=== PATIENT | female | born 1955 | race Caucasian/White ===

== ENCOUNTER 2018-11-11 19:14 | Inpatient (IN) | payer OTHER ==
[~2018-11-11] VITALS: Ht 172.7 cm; Wt 75.7 kg
[2018-11-11 10:30] VITALS: BP 176/88
[2018-11-11] MEDS ORDERED: *INS HUMA SQ (22:05)
[2018-11-11] MEDS ORDERED: INSU100I26 SQ (22:05)
[2018-11-11] MEDS ORDERED: DIAZ2TAB PO (22:10)
--- NOTE | 2018-11-11 22:30 | NUR ---
MS TRAIN DISPATCHER NOTES Admitted this 63 year old female from A/O x4, awake, on gurney accompanied by 2 manager lighting. Received from [facility], admitted to MS 311-1 due to septic arthritis under the service of SHERRY Radford. Assisted to bed comfortably, patient noted ambulatory independently with steady gait. Skin assessment done, photos taken and documented. Belongings inventory completed by ANJEL Akhtar.With patent peripheral LAC G#20, SL. Kept on bed comfortably, clean and dry. Kept bed low and locked, siderails x2 up, call light within easy reach. BS - 133.
[2018-11-11] MEDS ORDERED: HYDROCODONE/APAP 5/325MG 1 EACH TABLET PO PRN (23:00)
[2018-11-11] MEDS ORDERED: INSULIN REGULAR, HUMAN 100 UNIT/ML 3 ML VIAL SQ PRN (23:00)
[2018-11-11] MEDS ORDERED: MAGNESIUM HYDROXIDE 30 ML UDC PO PRN (23:00)
[2018-11-11] MEDS ORDERED: Z GUARD REMEDY 2 OZ OINT TP PRN (23:00)
[2018-11-11] MEDS ORDERED: *INSULIN REGULAR(HUMULIN R)HUM 100 UNIT/ML VIAL SQ PRN (23:00)
[2018-11-11] MEDS ORDERED: ACETAMINOPHEN 325 MG TABLET PO PRN (23:00)
[2018-11-11] MEDS ORDERED: MORPHINE SULFATE INJ 2 MG/ML DISP.SYRIN IV PRN (23:00)
[2018-11-11] MEDS ORDERED: VANCOMYCIN 1 GM in IV D5W 250ml IV ONE (23:00)
[2018-11-11] MEDS ORDERED: ONDANSETRON HCL/PF 4 MG/2 ML VIAL IVP PRN (23:00)
[2018-11-11] MEDS ORDERED: ZOLPIDEM TARTRATE 5 MG TABLET PO PRN (23:00)
[2018-11-11] MEDS ORDERED: DIAZEPAM 2 MG TABLET PO PRN (23:00)
[2018-11-11] MEDS ORDERED: INSULIN GLARGINE, 100 UNIT/ML CARTRIDGE SQ SCH (23:00)
[2018-11-11] MEDS ORDERED: DEXTROSE 50%-WATER 50 ML DISP.SYRIN IV PRN (23:00)
[2018-11-11] MEDS: BLOOD SUGAR DIAGNOSTIC 1 EACH STRIP IN SCH (23:09)
--- NOTE | 2018-11-11 23:22 | NUR ---
MS RN NOTES - HELD LISPRO Upon arrival, BS - 133. Patient claimed she self administer 12u Lispro. At this time, the patient claimed feeling something is wrong. Rechecked BS - 76. Held HS lispro, gave juice. Will recheck BS in 20 mins. Will continue to monitor accordingly.
[2018-11-11] MEDS: IV NS 0.9% 1,000 ML IV PRN (23:35)
--- NOTE | 2018-11-12 | NUR ---
MS RN NOTES Rechecked BS - 119. Patient claimed feeling better at this time. Will continue to monitor accordingly.
[2018-11-12] MEDS ORDERED: VANCOMYCIN 1 GM VIAL ONE (03:15)
[2018-11-12] MEDS ORDERED: VANCOMYCIN 1 GM in IV NS 0.9% 250 ML IV ONE (05:00)
--- NOTE | 2018-11-12 06:48 | NUR ---
MS RN CLOSING NOTES Patient claimed she slept intermittently. Peripheral IV line LAC G#20 with NS @ 75ml/hr infusing well as ordered. Patient denies discomfort at this time. Due meds given as ordered. Kept bed low and locked, siderails x2 up, call light within easy reach. Endorsed to the next shift.
[2018-11-12 07:23] LABS: BASOPHILS % (AUTO) 0.6 % (0.0-2.0); EOSINOPHILS % (AUTO) 2.4 % (0.0-6.0); HEMATOCRIT 37 % (33-45); HEMOGLOBIN 12.2 g/dL (11.5-14.8); LYMPHOCYTES # (AUTO) 2.2 /CMM (0.8-4.8); LYMPHOCYTES % (AUTO) 35.2 % (20.0-44.0); MEAN CORPUSCULAR HGB CONC 33 g/dl (31.0-36.0); MEAN CORPUSCULAR VOLUME 88 fL (82-100); MONOCYTES # (AUTO) 0.4 /CMM (0.1-1.30); MONOCYTES % (AUTO) 7.2 % (2.0-12.0); NEUTROPHILS # (AUTO) 3.4 /CMM (1.8-8.9); NEUTROPHILS % (AUTO) 54.6 % (43.0-81.0); PLATELET COUNT (AUTO) 332 /CMM (150-450); RED BLOOD CELL COUNT(AUTO) 4.16 MIL/uL (4.0-5.2); WHITE BLOOD COUNT (AUTO) 6.2 K/uL (4.3-11.0)
--- NOTE | 2018-11-12 07:24 | NUR ---
MS RN NOTES MEDICAL OFFICE SECRETARY RN summoned to patient's room. IV site noted infiltrated. D/C LAC line, applied dressing minimal bleeding noted controlled with pressure. Reinserted peripheral IV line G#24 L Forearm, 1 attempt, good blood return noted. Resumed IVF as ordered. Ice pack applied to to LAC.
[2018-11-12] MEDS: BLOOD SUGAR DIAGNOSTIC 1 EACH STRIP IN SCH ×4 (07:29→21:04)
[2018-11-12 07:37] LABS: CALCIUM, SERUM 8.5 mg/dL (8.5-10.1); CREATININE 0.6 mg/dL (0.6-1.3); MAGNESIUM 1.8 mg/dL (1.8-2.4); PHOSPHORUS 3.7 mg/dL (2.5-4.9); POTASSIUM 3.7 mmol/L (3.5-5.1)
[2018-11-12 08:00] VITALS: BP 160/73
--- NOTE | 2018-11-12 08:00 | NUR ---
MS MARY AM NOTES Received pt A/O x4, awake, on gurney accompanied by 2 [address] maintainer[address] Patient ambulatory independently with steady gait. With patent peripheral LAC G#20, SL.With ongoing IVF of NS at 75 ml/hr infusing well.Blood sugar 175 and pt wants to use her own home med Humalog and Basaglar Pen insulins because here needles are less painful compared to our own insulin syringes.Informed Timmy,CLOTHES WRINGER and stated its OK. sent pt's own home med insulin pens to the pharmacy.Coordinated with pharmacy. Kept on bed comfortably, clean and dry. Kept bed low and locked, siderails x2 up, call light within easy reach.
[2018-11-12] MEDS ORDERED: FEE PK DOSING 1 MIN EA MC ONE (08:29)
[2018-11-12] MEDS ORDERED: INSULIN GLARGINE, 100 UNIT/ML CARTRIDGE SQ SCH (09:00)
[2018-11-12] MEDS ORDERED: HOME MED MISCELLANEOUS XX SCH (10:00)
[2018-11-12] MEDS ORDERED: HOME MED MISCELLANEOUS SQ SCH (10:00)
[2018-11-12] MEDS ORDERED: DEXTROSE 50%-WATER 50 ML DISP.SYRIN IV PRN (11:00)
[2018-11-12] MEDS ORDERED: *INSULIN ASPART NOVOLOG 100 UNIT/ML CARTRIDGE SQ PRN (11:00)
--- NOTE | 2018-11-12 11:21 | NUR ---
WOUND CARE CONSULT: PT WAS SEEN BY DR KNIGHT. DEFER TO DPM FOR WOUND TREATMENT PLAN. PT IS CONTINENT AND INDEPENDENT WITH BED MOBILITY. WILL SEE PRN.
--- NOTE | 2018-11-12 11:40 | NUR ---
DR KNIGHT SAW THE PT AND DID THE RT AND LEFT FOOT WOUND DEBRIDEMENT PROCEDURE WITH CONSENT SIGNED.DONE AT BEDSIDE.PT TOLERATED WELL.
[2018-11-12] MEDS: BASAGLAR INSULIN SQ SCH ×2 (11:47→21:04)
[2018-11-12] MEDS: INSULIN ASPART/LISPRO 100 UNIT/ML CARTRIDGE SQ PRN ×2 (11:53→17:52)
--- NOTE | 2018-11-12 13:00 | NUR ---
OFFERED THE BED CRADLE BUT PT REFUSED HAVING IT ON HER BED SAYING SHE IS FINE.
[2018-11-12 13:47] LABS: APPEARANCE,URINE CLEAR (CLEAR); BILIRUBIN,URINE NEGATIVE (NEGATIVE); BLOOD, URINE NEGATIVE Ery/uL (NEGATIVE); COLOR,URINE YELLOW (YELLOW); KETONES,URINE NEGATIVE (NEGATIVE); LEUKOCYTE ESTERASE ,URINE NEGATIVE (NEGATIVE); NITRITE, URINE NEGATIVE (NEGATIVE); PROTEIN,URINE NEGATIVE (NEGATIVE); UGLUCOSE 3+ mg/dL (NEGATIVE); UROBILINOGEN,URINE 0.2 EU/dL (0.2)
[2018-11-12 13:54] LABS: CREATININE, URINE 20.4 MG/DL (30.0-125.0); URINE TOTAL PROTEIN 3.4 mg/dL (0-11.9)
--- NOTE | 2018-11-12 14:28 | NUR ---
Social service consult requested by SHERRY Radford for providing pt. with Advance Directives Form. SW met with pt. bedside. Pt. is alert and oriented x 4. Pt. was sitting upright on her bed and watching TV. SW explained the Advance Directive process and left form with the pt. Pt. stated she will have it filled out later.
[2018-11-12 16:00] VITALS: BP 130/69
[2018-11-12 16:00] LABS: BACTERIA,URINE Rare /HPF (None Seen); RBC,URINE 0-2 /HPF (0-2); WBC,URINE 0-2 /HPF (0-3)
[2018-11-12 16:01] LABS: SQUAMOUS EPITHELIAL CELL,UR Few /HPF (None Seen)
[2018-11-12] MEDS: VANCOMYCIN 1 GM in IV D5W 250 ML IV SCH (16:18)
[2018-11-12 16:21] LABS: EOSINOPHIL,URINE None Seen
--- NOTE | 2018-11-12 17:09 | NUR ---
PT IS RELAXING WATCHING TELEVISION AND DENIED PAIN WITH ONGOING VANCOMYCIN INFUSING WELL AND ABLE TO TAKE A GOOD NAP STATED BY THE PATIENT AND CALL LIGHT WITHIN REACH.
--- NOTE | 2018-11-12 19:15 | NUR ---
MS RN OPENING NOTES Received patient in bed, family at bedside. Alert, oriented x 4. Breathing even and unlabored. Not in any distress. Peripheral IV infusing at 75mL/hr. Call light within easy reach. Bed in low, locked position. Will continue to monitor accordingly
[2018-11-12 20:00] VITALS: BP 151/73
[2018-11-12] MEDS: CEFTRIAXONE 1 G in IV D5W 50 ML IV SCH (20:00)
--- NOTE | 2018-11-12 21:10 | NUR ---
RN NOTES BSL checked- 256mg/dL. Basaglar insulin administered by patient. Novolog 6units administered by patient as per sliding scale. Juice provided. Will continue to monitor accordingly
[2018-11-12] MEDS: TEMAZEPAM 15 MG CAPSULE PO PRN (22:18)
--- NOTE | 2018-11-12 22:20 | NUR ---
RN NOTES Patient requesting for sleeping tablet. Refused ambien but okay with restoril- 15mg given as ordered. Patient also requested to be unhooked from IV as she has a hard time sleeping with it on. Patient is drinking. Explained to her that I will hook her back when her antibiotics is due. Patient verbalized understanding. Will continue to monitor accordingly
--- NOTE | 2018-11-13 00:20 | NUR ---
RN NOTES BSL rechecked- 73mg/dL. Patient given orange juice. Will recheck in 20mins.
--- NOTE | 2018-11-13 00:42 | NUR ---
MS RN OPENING NOTES BSL recheked- 67mg/dL. Patient provided juice and kimi crackers. Took the orange juice but refused the kimi crackers. Will recheck again later
--- NOTE | 2018-11-13 01:25 | NUR ---
RN NOTES BSL rechecked- 105mg/dL. Will continue to monitor accordingly
[2018-11-13 04:00] VITALS: BP 148/74
[2018-11-13 04:28] LABS: BASOPHILS # (AUTO) 0.1 /CMM (0.0-0.2); BASOPHILS % (AUTO) 0.9 % (0.0-2.0); HEMATOCRIT 38 % (33-45); HEMOGLOBIN 12.6 g/dL (11.5-14.8); LYMPHOCYTES # (AUTO) 2.6 /CMM (0.8-4.8); LYMPHOCYTES % (AUTO) 44.5 % (20.0-44.0); MEAN CORPUSCULAR HGB CONC 34 g/dl (31.0-36.0); MEAN CORPUSCULAR VOLUME 87 fL (82-100); MONOCYTES # (AUTO) 0.4 /CMM (0.1-1.30); MONOCYTES % (AUTO) 6.8 % (2.0-12.0); NEUTROPHILS # (AUTO) 2.6 /CMM (1.8-8.9); NEUTROPHILS % (AUTO) 44.8 % (43.0-81.0); PLATELET COUNT (AUTO) 342 /CMM (150-450); WHITE BLOOD COUNT (AUTO) 5.8 K/uL (4.3-11.0)
[2018-11-13 04:52] LABS: ALBUMIN 2.5 g/dL (3.4-5.0); BILIRUBIN,TOTAL 0.3 mg/dL (0.2-1.0); CALCIUM, SERUM 8.7 mg/dL (8.5-10.1); CREATININE 0.6 mg/dL (0.6-1.3); PHOSPHORUS 4.1 mg/dL (2.5-4.9); TOTAL PROTEIN, SERUM 6.4 g/dL (6.4-8.2)
[2018-11-13] MEDS: IV NS 0.9% 1,000 ML IV PRN (05:10)
[2018-11-13] MEDS: VANCOMYCIN 1 GM in IV D5W 250 ML IV SCH ×2 (05:34→16:18)
--- NOTE | 2018-11-13 06:40 | NUR ---
RN NOTES BSL checked- 113mg/dL. No insulin coverage given per sliding scale
--- NOTE | 2018-11-13 06:58 | NUR ---
MS RN CLOSING NOTES Patient in bed, alert, oriented x 4. Breathing even and unlabored. Not in any distress. No complaints at this time. Peripheral IV infusing at 75mL/hr. Call light within reach. Bed in low, locked position. Will endorse CONCHA to oncoming RN
[2018-11-13] MEDS: BLOOD SUGAR DIAGNOSTIC 1 EACH STRIP IN SCH ×4 (07:29→22:24)
[2018-11-13] MEDS: INSULIN ASPART/LISPRO 100 UNIT/ML CARTRIDGE SQ PRN ×2 (07:30→22:37)
[2018-11-13 08:00] VITALS: BP 155/71
--- NOTE | 2018-11-13 08:00 | NUR ---
MS RN OPENING NOTES Received patient in bed, Alert, oriented x 4. Breathing even and unlabored. Not in any distress or pain. Peripheral IV infusing at 75mL/hr. Call light within easy reach. Bed in low, locked position. Will continue to monitor accordingly
[2018-11-13] MEDS: HYDROGEL DRESSING 90 GM TUBE TP SCH (08:48)
[2018-11-13] MEDS: BASAGLAR INSULIN SQ SCH (08:48)
[2018-11-13] MEDS ORDERED: INSULIN REGULAR, HUMAN 100 UNIT/ML 3 ML VIAL SQ PRN (09:00)
[2018-11-13] MEDS ORDERED: DEXTROSE 50%-WATER 50 ML DISP.SYRIN IV PRN ×2 (09:00→09:30)
[2018-11-13] MEDS: INSULIN LISPRO/ASPART 100 UNIT/ML CARTRIDGE SQ SCH ×2 (11:05→17:49)
--- NOTE | 2018-11-13 11:05 | NUR ---
THERE WAS A DELAY IN ROUTINE HUMALOG INSULIN FOR 0900 DUE TO CLARIFICATION OF ORDERS WITH SHERRY HENDRICKSON.CHECKED PT'S BLOOD SUGAR BS 313 PRIOR TO ADMINISTERING HUMALOG INSULIN OF 9 UNITS.WILL RECHECK AND MONITOR.
[2018-11-13] MEDS ORDERED: BLOOD SUGAR DIAGNOSTIC 1 EACH STRIP IN SCH (12:00)
[2018-11-13 16:00] VITALS: BP 158/78
[2018-11-13] MEDS: LACTOBACILLUS RHAMNOSUS GG 1 EACH CAP.SPRINK PO SCH (16:20)
--- NOTE | 2018-11-13 19:30 | NUR ---
RN NOTES RECEIVED PT. AWAKE ON BED, FAMILY AT BEDSIDE, PT. IS NOT HAPPY BECAUSE THERE'S A NEW ADMISSION ON THE OTHER BED, AND PT'S DAUGHTER TALKED TO ME IF WE CAN TRANSFER THE PT. TO ANOTHER ROOM. I EXPLAINED OT THE PT'S DAUGHTER THAT EVEN WE TRANSFER HER TO ANOTHER ROOM THERE'S NO GUARANTEE THAT SHE CANNOT HAVE A ROOM MATE.. PT. WAS NOT HAPPY ABOUT IT
[2018-11-13 20:00] VITALS: BP 161/81
[2018-11-13 20:24] VITALS: BP 161/81
[2018-11-13] MEDS: CEFTRIAXONE 1 G in IV D5W 50 ML IV SCH (20:34)
--- NOTE | 2018-11-13 20:45 | NUR ---
RN NOTES TALKED TO THE PT REGARDING HER REQUEST TO BE MOVED TO ANOTHER ROOM BUT EXPLAINED TO HER WELL TO HER FAMILY THAT THERE'S NO GUARANTEE THAT SHE CANNOT HAVE ANOTHER ROOM MATE. EVEN ASKED THE PT. THAT SHE STARTED TO GET ANXIOUS WHEN HER ROOM MATE CAME BEGINNING OF THE SHIFT
--- NOTE | 2018-11-13 20:50 | NUR ---
RN NOTES PT. IS COMPLAINING ABOUT HER INSULIN MEDICATION AND I KEEP ON EXPLAINING TO HER THAT WE NEED TO CHECK AGAI HER BLOOD SUGAR BEFORE I CAN GIVE HER LANTUS .. I EXPLAINING IT INFRONT OF HER DAUGHTER AND HER SON BUT PT. STILL INSISTING THAT SHE'S ONLY CHECKING IT 2X/DAY.. I EXPLAINED IT TO HER THAT SINCE HER BLOOD SUGAR WAS FLUCTUATING, WE NEED TO CHECK IT AC/HS..HER DAUGHTER IS ALREADY HELPING ME EXPLAINING EVERYTHING TO THE PT. BUT PT. WAS BLAMING ME. EVEN HER IV LINE WAS ALREADY A INFILTRATED A ND I TOLD HER THAT WERE GOING TO PUT A NEW ONE.. SHE EVEN TOLD ME THAT EARLIER IT WAS NOT LIKE THAT. I EXPLAINED TO THE PT. THAT I HAVEN'T TOUCH IT YET AND I'M GOING TO CALL ICU NURSE TO PUT A NEW LINE
--- NOTE | 2018-11-13 21:00 | NUR ---
RN NOTES CHARGE NURSE ALREADY LOOKING FOR ANOTHER ROOM BUT PT. REFUSED TO BE MOVED THIS TIME
--- NOTE | 2018-11-13 21:00 | NUR ---
RN NOTES I TALKED TO CHARGE NURSE TO CHANGE THE ASSIGNMENT. AFTER GIVING REPORT TO ANOTHER NURSE PT. APOLOGIZED TO ME AND I EXPLAINED TOT HE PT. THAT I UNDERSTAND HER
--- NOTE | 2018-11-13 21:00 | NUR ---
RN MS RECEIVING NOTES, CONTINUITY OF CARE RECEIVED PATIENT FROM [facility] IN STABLE CONDITION, AWAKE ALERT AND ORIENTED X 4, RESPIRATIONS EVEN AND UNLABORED WITH EQUAL RISE AND FALL OF CHEST, PATIENT APPEARS ANXIOUS AT THIS TIME, PLAN OF CARE DISCUSSED REDIRECTABLE. IV SITE TO RIGHT FA REMOVED, IV SITE TO LEFT WRIST #20 INTACT AND PATENT, NO REDNESS, NO INFILTRATION PRESENT, RIGHT ARM NOTED SLIGHT REDNESS, INFILTRATED, DISCUSSED PLAN OF CARE, PATIENT REFUSING IVF, STATES " IM UP WALKING TO BATHROOM BACK AND FOURTH AND DRINKING WATER".WOUND DRESSING TO BLE INTACT,CLEAN AND DRY,DENIES ANY PAIN AT THIS TIME, WILL REASSESS B/P WHEN PATIENT IS CALM AND DOESNT APPEAR ANXIOUS. ALL NEEDS ATTENDED AT THIS TIME , WILL CONTINUE TO MONITOR AND ADDRESS NEEDS.
--- NOTE | 2018-11-13 21:25 | NUR ---
RN NOTES CHARGE NURSE TALKED TO THE PT. BUT PT. REFUSED TO TALK
--- NOTE | 2018-11-13 21:30 | NUR ---
RN NOTES AFTER I INTRODUCED THE OTHER NURSE PT. TALKED TO ME AND WAS CRYING AND APOLOGIZED AGAIN.. PT STATED THAT "SHE DOESN'T WANT TO BE MEAN TO ME". PT EVEN ASKED ME TO HELP TO FIX HER DRESSING ON HER LEFT FOOT BEFORE SHE GO TO THE TOILET. FIXED THE DRESSING ON PT'S LEFT FOOT. AND HELPED HER TO GO THE TOILET
--- NOTE | 2018-11-13 22:00 | NUR ---
RN MS NOTES PATIENT REFUSED TO HAVE INSULIN PER SLIDING SCALE DESPITE EXPLANATION , JUST WANTS LANTUS. LANTUS GIVEN ORDERED.
[2018-11-13] MEDS: TEMAZEPAM 15 MG CAPSULE PO PRN (22:24)
--- NOTE | 2018-11-13 22:24 | NUR ---
RN MS NOTES PATIENT REQUESTED FOR SLEEP MEDICATION PRN RESTORIL OFFERED PT AGREED TO TAKE . PRN GIVEN ORDERED WILL CONTINUE TO MONITOR, PATIENT APPEARS TO BE ANXIOUS BUT REDIRECTABLE.
[2018-11-13] MEDS: INSULIN GLARGINE, 100 UNIT/ML CARTRIDGE SQ SCH (22:28)
--- NOTE | 2018-11-14 00:28 | NUR ---
RN MS NOTES RECHECKED B/P AFTER PATIENT WAS CALM AND FREE AND FEELING ANXIOUS, PATIENT HAS A HISTORY OF HTN AND STATES "ITS BEEN IN THE 200'S BEFORE AND HAS RECEIVED [place]AN BUT NOT TAKING ANYTHING NOW" CURRENTLY DOES NOT TAKE ANY HOME MEDICATIONS FOR HTN. NOTED WITH B/P OF 167/75,78 AND TREND OF SBP 150-170 CALLED AND SPOKE TO TAM YUSUF MADE AWARE WITH NEW ORDER FOR HYDRALAZINE 10MG IV X 1, F/UP IN AM. WILL CONTINUE TO MONITOR.
[2018-11-14] MEDS ORDERED: hydrALAZINE HCL IV 20 MG VIAL IV ONE (00:30)
--- NOTE | 2018-11-14 00:52 | NUR ---
RN MS NOTES PATIENT REFUSED HYDRALAZINE AT THIS TIME, EXPLAINED B/P IS ELEVATED AND RISK AND BENEFITS, PATIENT STATES "NO,SHE WILL HAVE TO LOOK IT UP FIRST". NOT GIVEN WILL CONTINUE TO MONITOR, ASYMPTOMATIC
--- NOTE | 2018-11-14 03:38 | NUR ---
RN MS NOTES PATIENT REQUESTING FOR ACCUCHECK ACCUCHECK 265
[2018-11-14] MEDS ORDERED: VANCOMYCIN 1.25 GM in IV D5W 500 ML IV SCH (05:00)
[2018-11-14] MEDS: VANCOMYCIN 1 GM in IV D5W 250 ML IV SCH ×2 (05:28→18:07)
--- NOTE | 2018-11-14 06:28 | NUR ---
RN MS CLOSING PATIENT IN BED AWAKE ALERT AND ORIENTED X 4, RESPIRATIONS EVEN AND UNLABORED WITH EQUAL RISE AND FALL OF CHEST, IV SITE TO RIGHT FA REMOVED, IV SITE TO LEFT WRIST #20 INTACT AND PATENT, NO REDNESS, NO INFILTRATION PRESENT, PATIENT REFUSING IVF AND REFUSED PRN HYDRALAZINE REFUSED SLIDING SCALE INSULIN, WOUND DRESSING TO BLE INTACT,CLEAN AND DRY,DENIES ANY PAIN AT THIS TIME, ALL NEEDS ATTENDED AT THIS TIME , WILL CONTINUE TO MONITOR AND ADDRESS NEEDS AND ENDORSE TO NEXT SHIFT .
[2018-11-14] MEDS: INSULIN ASPART/LISPRO 100 UNIT/ML CARTRIDGE SQ PRN ×4 (06:53→21:40)
[2018-11-14] MEDS: BLOOD SUGAR DIAGNOSTIC 1 EACH STRIP IN SCH ×4 (06:56→21:34)
--- NOTE | 2018-11-14 07:02 | NUR ---
MS RN NOTES PATIENT IN BED ALERT ORIENTED X 4. NO ACUTE DISTRESS NOTED. BREATHING UNLABORED. NO ACUTE DISTRESS NOTED. IV ACCESS PATENT AND INTACT, NO REDNESS OR SWELLING NOTED. SAFETY MEASURES IN PLACE. CALL LIGHT WITHIN REACH. WILL CONTINUE TO MONITOR ACCORDINGLY.
[2018-11-14 07:40] LABS: CALCIUM, SERUM 9.1 mg/dL (8.5-10.1); CREATININE 0.8 mg/dL (0.6-1.3); POTASSIUM 3.8 mmol/L (3.5-5.1)
[2018-11-14 08:00] VITALS: BP 171/82
[2018-11-14] MEDS: INSULIN LISPRO/ASPART 100 UNIT/ML CARTRIDGE SQ SCH ×2 (09:27→17:58)
[2018-11-14] MEDS: LOSARTAN POTASSIUM 25 MG TABLET PO SCH (09:30)
[2018-11-14] MEDS: LACTOBACILLUS RHAMNOSUS GG 1 EACH CAP.SPRINK PO SCH ×2 (09:30→17:50)
[2018-11-14] MEDS: HYDROGEL DRESSING 90 GM TUBE TP SCH (09:31)
[2018-11-14 16:00] VITALS: BP 188/84
[2018-11-14] MEDS ORDERED: hydrALAZINE HCL 25 MG TABLET PO PRN (16:30)
--- NOTE | 2018-11-14 16:32 | NUR ---
MS RN NOTES PATIENT NOTED WITH ELEVATED BLOOD PRESSURE, CALLED MD WITH NEW ORDERS FOR HYDRALAZINE 25 MG Q6H PRN FOR SBP OVER 160 AND NORVASC 5MG DAILY TO START TOMORROW 11/15/18, NOTED AND CARRIED OUT.
--- NOTE | 2018-11-14 16:35 | NUR ---
MS RN NOTES BLOOD PRESSURE RECHECKED 149/76 PULSE 76. NO ACUTE DISTRESS NOTED.
--- NOTE | 2018-11-14 16:55 | NUR ---
MS RN NOTES PICC LINE INSERTED ON CHLOÉ WITH TRANSPARENT DRESSING BY PICC LINE NURSE.
--- NOTE | 2018-11-14 19:00 | NUR ---
MS RN NOTES PATIENT IN BED ALERT ORIENTED X 4. NO ACUTE DISTRESS NOTED. BREATHING UNLABORED. NO ACUTE DISTRESS NOTED. IV ACCESS PATENT AND INTACT, NO REDNESS OR SWELLING NOTED.DUE MEDICATIONS GIVEN, NO ASE NOTED, NEEDS ATTENDED AND ANTICIPATED. SAFETY MEASURES IN PLACE. CALL LIGHT WITHIN REACH. ENDORSED TO NIGHT NURSE FOR CONTINUITY OF CARE.
--- NOTE | 2018-11-14 19:20 | NUR ---
MS RN OPENING NOTES Received patient sitting up in bed, alert, oriented x 4. Breathing even and unlabored. Not in any distress. No complaints at this time. PICC line in place, infusing NS at 75mL/hr. Dressing in BLE clean, dry and intact. Call light within easy reach. Bed in lowest locked position. Will continue to monitor accordingly
[2018-11-14] MEDS: CEFTRIAXONE 1 G in IV D5W 50 ML IV SCH (19:44)
[2018-11-14 20:00] VITALS: BP_SYST 141; BP_DIAS 65; BP_DIAS 73
[2018-11-14] MEDS: TEMAZEPAM 15 MG CAPSULE PO PRN (20:25)
--- NOTE | 2018-11-14 20:26 | NUR ---
RN NOTES Patient requested for her sleeping tablet. Stated that she has not slept since last night and the whole day today. Restoril 15mg given as ordered.
[2018-11-14] MEDS: INSULIN GLARGINE, 100 UNIT/ML CARTRIDGE SQ SCH (21:34)
--- NOTE | 2018-11-14 21:45 | NUR ---
RN NOTES BSL checked- 250mg/dL. Lantus 20units self administered with supervision and Novolog 4units per sliding scale. Will monitor accordingly
--- NOTE | 2018-11-14 21:55 | NUR ---
RN NOTES Patient requested to be unhooked from IVF. Stated she can't sleep comfortable with it on.
[2018-11-15] MEDS ORDERED: VANCOMYCIN 1.25 GM in IV D5W 500 ML IV SCH (05:00)
[2018-11-15] MEDS: BLOOD SUGAR DIAGNOSTIC 1 EACH STRIP IN SCH ×4 (06:42→22:28)
[2018-11-15] MEDS: INSULIN ASPART/LISPRO 100 UNIT/ML CARTRIDGE SQ PRN ×3 (06:47→23:03)
--- NOTE | 2018-11-15 07:13 | NUR ---
MS RN CLOSING NOTES Patient sitting in bed, alert, oriented x 4. Breathing even and unlabored. Not in any distress. No complaints at this time. Peripheral IV infusing at 75mL/hr. BSL 355mg/dL, 10 units insulin coverage given per sliding scale. Call light within reach. Bed in low, locked position. Endorsed CONCHA to oncoming RN
[2018-11-15 07:35] LABS: BASOPHILS # (AUTO) 0.1 /CMM (0.0-0.2); BASOPHILS % (AUTO) 0.7 % (0.0-2.0); EOSINOPHILS % (AUTO) 1.5 % (0.0-6.0); HEMATOCRIT 41 % (33-45); LYMPHOCYTES % (AUTO) 22.2 % (20.0-44.0); MEAN CORPUSCULAR HGB CONC 34 g/dl (31.0-36.0); MEAN CORPUSCULAR VOLUME 88 fL (82-100); MONOCYTES # (AUTO) 0.5 /CMM (0.1-1.30); MONOCYTES % (AUTO) 5.7 % (2.0-12.0); NEUTROPHILS # (AUTO) 6.2 /CMM (1.8-8.9); NEUTROPHILS % (AUTO) 69.9 % (43.0-81.0); PLATELET COUNT (AUTO) 316 /CMM (150-450); RED BLOOD CELL COUNT(AUTO) 4.73 MIL/uL (4.0-5.2); WHITE BLOOD COUNT (AUTO) 8.8 K/uL (4.3-11.0)
[2018-11-15 07:55] LABS: CALCIUM, SERUM 8.9 mg/dL (8.5-10.1); CREATININE 0.8 mg/dL (0.6-1.3); PHOSPHORUS 3.4 mg/dL (2.5-4.9); POTASSIUM 4.2 mmol/L (3.5-5.1)
--- NOTE | 2018-11-15 08:29 | NUR ---
MS RN NOTES SEEN AND EVALUATED BY DR VILLAFUERTE, AWARE OF ELEVATED GLUCOSE AND BLOOD PRESSURE.
[2018-11-15 08:43] VITALS: BP 155/76
[2018-11-15] MEDS ORDERED: AMLODIPINE BESYLATE 5 MG TABLET PO SCH (09:00)
[2018-11-15] MEDS: LOSARTAN POTASSIUM 25 MG TABLET PO SCH (09:19)
[2018-11-15] MEDS: LACTOBACILLUS RHAMNOSUS GG 1 EACH CAP.SPRINK PO SCH ×2 (09:19→17:53)
[2018-11-15] MEDS: INSULIN LISPRO/ASPART 100 UNIT/ML CARTRIDGE SQ SCH ×2 (09:21→17:58)
[2018-11-15] MEDS: HYDROGEL DRESSING 90 GM TUBE TP SCH (09:22)
[2018-11-15] MEDS ORDERED: INSU100C4 SQ (10:06)
[2018-11-15] MEDS ORDERED: Insulin Glargine,Hum SQ (10:06)
[2018-11-15] MEDS ORDERED: HYDR-4384 PO (10:06)
[2018-11-15] MEDS ORDERED: LACT1CAP72 PO (10:06)
[2018-11-15] MEDS ORDERED: LOSA25TA3 PO (10:06)
[2018-11-15] MEDS ORDERED: AMLO5TAB9 PO (10:06)
[2018-11-15] MEDS ORDERED: HYDR-4076 PO (10:24)
[2018-11-15 17:35] VITALS: BP 136/69
[2018-11-15] MEDS: VANCOMYCIN 1.25 GM in IV NS 0.9% 500 ML IV SCH (17:53)
--- NOTE | 2018-11-15 19:00 | NUR ---
MS RN NOTES PATIENT IN BED ALERT ORIENTED X 4. NO ACUTE DISTRESS NOTED. BREATHING UNLABORED. NO ACUTE DISTRESS NOTED. IV ACCESS PATENT AND INTACT, NO REDNESS OR SWELLING NOTED. DUE MEDICATIONS GIVEN, NO ASE NOTED. NEEDS ATTENDED AND ANTICIPATED.SAFETY MEASURES IN PLACE. CALL LIGHT WITHIN REACH. ENDORSED TO NIGHT NURSE FOR CONTINUITY OF CARE.
--- NOTE | 2018-11-15 19:20 | NUR ---
MS/RN OPENING NOTES PT AWAKE, HOB ELEVATED. ON ROOM AIR, BREATHING EVEN AND UNLABORED. DENIES SOB AND PAIN AT THIS TIME. CHLOÉ PICC PATENT AND INTACT RUNNING IVF ORDERED. BED IN LOW/LOCKED POSITION WITH CALL LIGHT IN REACH. WILL CONTINUE TO MONITOR
[2018-11-15 20:00] VITALS: BP 137/72
[2018-11-15] MEDS ORDERED: CEFTRIAXONE 1 G in IV NS 0.9% 50 ML IV SCH (20:00)
[2018-11-15] MEDS: INSULIN GLARGINE, 100 UNIT/ML CARTRIDGE SQ SCH (22:29)
[2018-11-15] MEDS: TEMAZEPAM 15 MG CAPSULE PO PRN (23:56)
[2018-11-16] MEDS: IV NS 0.9% 1,000 ML IV PRN (00:01)
--- NOTE | 2018-11-16 00:03 | NUR ---
MS/RN NOTES PT UNABLE TO SLEEP. REQUESTED RESTORIL. ADMINISTERED ORDERED. WATER PITCHER REFILLED. NO OTHER NEEDS EXPRESSED AT THIS TIME.
[2018-11-16 03:52] LABS: BASOPHILS # (AUTO) 0.1 /CMM (0.0-0.2); BASOPHILS % (AUTO) 0.9 % (0.0-2.0); EOSINOPHILS % (AUTO) 1.9 % (0.0-6.0); HEMATOCRIT 38 % (33-45); HEMOGLOBIN 12.8 g/dL (11.5-14.8); LYMPHOCYTES # (AUTO) 2.5 /CMM (0.8-4.8); LYMPHOCYTES % (AUTO) 35.7 % (20.0-44.0); MEAN CORPUSCULAR HGB CONC 33 g/dl (31.0-36.0); MEAN CORPUSCULAR VOLUME 88 fL (82-100); MONOCYTES # (AUTO) 0.4 /CMM (0.1-1.30); MONOCYTES % (AUTO) 5.9 % (2.0-12.0); NEUTROPHILS # (AUTO) 3.9 /CMM (1.8-8.9); NEUTROPHILS % (AUTO) 55.6 % (43.0-81.0); PLATELET COUNT (AUTO) 271 /CMM (150-450); RED BLOOD CELL COUNT(AUTO) 4.36 MIL/uL (4.0-5.2)
[2018-11-16 04:05] LABS: CALCIUM, SERUM 8.6 mg/dL (8.5-10.1); CREATININE 0.7 mg/dL (0.6-1.3); MAGNESIUM 1.9 mg/dL (1.8-2.4); PHOSPHORUS 3.5 mg/dL (2.5-4.9); POTASSIUM 4.1 mmol/L (3.5-5.1)
[2018-11-16] MEDS: VANCOMYCIN 1.25 GM in IV NS 0.9% 500 ML IV SCH ×2 (05:58→16:31)
[2018-11-16] MEDS: BLOOD SUGAR DIAGNOSTIC 1 EACH STRIP IN SCH ×3 (07:02→18:09)
[2018-11-16] MEDS: INSULIN ASPART/LISPRO 100 UNIT/ML CARTRIDGE SQ PRN ×3 (07:05→18:10)
--- NOTE | 2018-11-16 07:40 | NUR ---
MS/RN CLOSING NOTES PT AWAKE, HOB ELEVATED. ON ROOM AIR, BREATHING EVEN AND UNLABORED. DENIES SOB AND PAIN AT THIS TIME. CHLOÉ PICC PATENT AND INTACT RUNNING IVF ORDERED. WOUND CARE PROVIDED ORDERED. NO SIGNIFICANT CHANGES OVERNIGHT. ALL NEEDS MET. BED REMAINS IN LOW/LOCKED POSITION WITH CALL LIGHT IN REACH. ENDORSED TO DAY SHIFT RN CONCHA.
[2018-11-16 08:00] VITALS: BP 133/73
[2018-11-16] MEDS ORDERED: AMLODIPINE BESYLATE 5 MG TABLET PO SCH (09:00)
--- NOTE | 2018-11-16 09:00 | NUR ---
MS RN NOTES RECEIVED WOUND CULTURE AND SENSITIVITY RESULT RECEIVED WITH [facility] MRSA, NOTIFIED DR VILLAFUERTE. CONTACT ISOLATION PRECAUTION IN PLACE.
[2018-11-16] MEDS: LACTOBACILLUS RHAMNOSUS GG 1 EACH CAP.SPRINK PO SCH ×2 (09:17→16:31)
[2018-11-16] MEDS: LOSARTAN POTASSIUM 25 MG TABLET PO SCH (09:17)
[2018-11-16] MEDS: HYDROGEL DRESSING 90 GM TUBE TP SCH (09:18)
[2018-11-16] MEDS: INSULIN LISPRO/ASPART 100 UNIT/ML CARTRIDGE SQ SCH ×2 (09:20→18:09)
[2018-11-16] MEDS ORDERED: RIFA300C4 PO (09:52)
[2018-11-16] MEDS ORDERED: Insulin Glargine,Hum SQ (09:52)
[2018-11-16] MEDS ORDERED: VANC1FRO2 IV (09:52)
[2018-11-16 16:00] VITALS: BP 146/76
--- NOTE | 2018-11-16 19:00 | NUR ---
MS SSRS REPORT DEVELOPER NOTES PATIENT DISCHARGED HOME WITH STABLE VITAL SIGNS, NO ACUTE DISTRESS NOTED. BREATHING UNLABORED. NO ACUTE DISTRESS NOTED. PICC LINE ON RIGHT UPPER ARM DOUBLE LUMEN ,PATENT AND INTACT,SECURED WITH TRANSPARENT DRESSING LABELLED AND DATED, NO REDNESS OR SWELLING NOTED. DUE MEDICATIONS GIVEN, NO ASE NOTED. NEEDS ATTENDED AND ANTICIPATED. DISCHARGE INSTRUCTIONS GIVEN TO THE PATIENT INCLUDING NEW PRESCRIPTION, FOLLOW UP WITH PODIATRY AND PRIMARY DOCTOR, [facility], VERBALIZED UNDERSTANDING. ALL BELONGINGS ACCOUNTED FOR INCLUDING HOME MEDICATIONS FROM PHARMACY. BILATERAL FEET WITH DRESSING CLEAN DRY AND INTACT. SENT HOME WITH NEW WALKER. WHEELED TO THE LOBBY, ASSISTED TO A PRIVATE CAR PICKED UP BY DAUGHTER IN STABLE CONDITION.
[2018-11-17] MEDS ORDERED: AMLODIPINE BESYLATE 5 MG TABLET PO SCH (09:00)
== END 2018-11-16 19:00 | disposition home health service (06) | DRG 364 ==
LOC: MED 21:20
PROVIDERS: ADMIT Nurse Practitioner Acute Care; ATTEND Student in an Organized Health Care Education/Training Program
PROC: 0KBW0ZZ Excision of Left Foot Muscle, Open Approach (ICD-10-PCS; principal; 2018-11-12)
PROC: 0KBV0ZZ Excision of Right Foot Muscle, Open Approach (ICD-10-PCS; principal; 2018-11-12)
PROC: 02HV33Z Insertion of Infusion Device into Superior Vena Cava, Percutaneous Approach (ICD-10-PCS; 2018-11-14)
PROC: B548ZZA Ultrasonography of Superior Vena Cava, Guidance (ICD-10-PCS; 2018-11-14)
DX: L03.115 Cellulitis of right lower limb (principal); E10.42 Type 1 diabetes mellitus with diabetic polyneuropathy; E10.22 Type 1 diabetes mellitus with diabetic chronic kidney disease; M00.9 Pyogenic arthritis, unspecified; E10.621 Type 1 diabetes mellitus with foot ulcer; E10.69 Type 1 diabetes mellitus with other specified complication; M86.8X7 Other osteomyelitis, ankle and foot; L97.519 Non-pressure chronic ulcer of other part of right foot with unspecified severity; I12.9 Hypertensive chronic kidney disease with stage 1 through stage 4 chronic kidney disease, or unspecified chronic kidney disease; N18.1 Chronic kidney disease, stage 1; B95.62 Methicillin resistant Staphylococcus aureus infection as the cause of diseases classified elsewhere; E10.65 Type 1 diabetes mellitus with hyperglycemia; K21.9 Gastro-esophageal reflux disease without esophagitis; Z79.4 Long term (current) use of insulin; Z90.5 Acquired absence of kidney; L97.529 Non-pressure chronic ulcer of other part of left foot with unspecified severity; S92.404A Nondisplaced unspecified fracture of right great toe, initial encounter for closed fracture; E66.9 Obesity, unspecified; Z68.25 Body mass index [BMI] 25.0-25.9, adult; X58.XXXA Exposure to other specified factors, initial encounter; Y93.9 Activity, unspecified; Y92.009 Unspecified place in unspecified non-institutional (private) residence as the place of occurrence of the external cause; J45.909 Unspecified asthma, uncomplicated
CPT/HCPCS: 36415; 36569; 71045-TC; 73630-TC; 80048-TC; 80053-TC; 80061-TC; 80202-TC; 81000-TC; 82550-TC; 82570-TC; 82962-TC; 83735-TC; 83970; 84100-TC; 84155-TC; 84300-TC; 85025-TC; 87070-TC; 87081-TC; A4216; A6248; A6402; A6403; A6407; C1751; G0378; J0360; J0696; J1815; J3370; J7030; J7040; J7050; J7060